=== PATIENT | female | born 1965 | race Hispanic/Latino ===

== ENCOUNTER 2020-08-13 07:06 | Day surgery (SDC) | payer OTHER, SELFPAY ==
[~2020-08-13] VITALS: Ht 160 cm; Wt 56.7 kg
[2020-08-13] VITALS (9 sets, daily range): BP systolic 71–173; BP diastolic 29–81
[~2020-08-13 07:06] MED LIST: ACET-2743 PO; DOCU-280 PO; IBUP-1673 PO
[2020-08-13] MEDS ORDERED: SODIUM CHLORIDE 0.9% 1000ML 1,000 ML IV ONE (07:11)
[2020-08-13] MEDS ORDERED: [UNRECOGNIZED DRUG - CODE] PO (07:56)
[2020-08-13] MEDS ORDERED: PROPOFOL 10 MG/ML 20ML VIAL IV ONE ×2 (08:25→08:40)
[2020-08-13] MEDS ORDERED: EPHEDRINE SULFATE 50 MG/ML AMPULE ONE (08:56)
[2020-08-13] MEDS ORDERED: DIATR MEGLU/DIATRIZOATE SODIUM 30 ML BOTTLE ONE (09:29)
== END 2020-08-13 10:15 | disposition home or self-care (01) ==
LOC: DAH 07:06 → ENDO 07:06
PROVIDERS: ATTEND Surgery
DX: K59.00 Constipation, unspecified (principal); Z20.822 Contact with and (suspected) exposure to COVID-19; C19 Malignant neoplasm of rectosigmoid junction; F17.210 Nicotine dependence, cigarettes, uncomplicated; Z79.899 Other long term (current) drug therapy; Z82.49 Family history of ischemic heart disease and other diseases of the circulatory system; Z98.890 Other specified postprocedural states
CPT/HCPCS: 45380; 74270; 87635; A4215; A4221; A4222; A4223; A4606; A4620; A4663; C9803; J2704 ×2; J3490; J7030; Q9963

== ENCOUNTER 2020-10-15 09:52 | Day surgery (SDC) | payer OTHER ==
[2020-10-09 17:09] LABS: BASOPHILS % (AUTO) 0.3 % (0.0-5.0); EOSINOPHILS % (AUTO) 1.3 % (0.0-8.0); LYMPHOCYTES % (AUTO) 27.1 % (21.0-51.0); MEAN CORPUSCULAR HEMOGLOBIN 29.9 pg (27.0-33.0); MEAN CORPUSCULAR HGB CONC 32.4 g/dL (32.0-36.0); MEAN CORPUSCULAR VOLUME 92.4 fL (79-99); MONOCYTES % (AUTO) 8.4 % (3.0-13.0); NEUTROPHILS % (AUTO) 62.6 % (40.0-77.0); PLATELET COUNT (AUTO) 357 K/uL (130-400); RED BLOOD CELL COUNT(AUTO) 3.68 MIL/uL (4.00-5.50); WHITE BLOOD COUNT (AUTO) 8.9 K/uL (4.8-10.8)
[2020-10-09 17:22] LABS: INR 0.93 (0.85-1.15); PROTHROMBIN TIME 10.2 SEC (9.6-11.6)
[2020-10-12 15:07] VITALS: BP 118/67
[~2020-10-15] VITALS: Ht 160 cm; Wt 56.8 kg
[2020-10-15] VITALS (15 sets, daily range): BP systolic 118–141; BP diastolic 72–81
[~2020-10-15 09:52] MED LIST changes: +0.9% NACL 500ML IV.SOLN 500 ML IV SCH; -ACET-2743 PO; -DOCU-280 PO; -IBUP-1673 PO
[2020-10-15] MEDS: CEFAZOLIN SODIUM 1 GM VIAL IVP SCH ×2 (10:00→14:30)
[2020-10-15] MEDS ORDERED: LACTATED RINGERS 1000ML 1,000 ML IV ONE ×2 (10:18→13:19)
[2020-10-15] MEDS ORDERED: DEXAMETHASONE SOD PHOSPHATE 10MG/ML 1ML VIAL ONE (11:58)
[2020-10-15] MEDS ORDERED: ONDANSETRON 4MG INJ ONE ×2 (11:58→14:02)
[2020-10-15] MEDS ORDERED: GLYCOPYRROLATE 1 MG/5 ML SYRINGE ONE (11:58)
[2020-10-15] MEDS ORDERED: PROPOFOL 10 MG/ML 20ML VIAL IV ONE ×2 (11:58→14:03)
[2020-10-15] MEDS ORDERED: LIDOCAINE PF 100MG/5ML (2%) SYRINGE 5ML ONE ×2 (11:58→14:02)
[2020-10-15] MEDS ORDERED: NEOSTIGMINE 5MG/5ML SYR IV ONE (11:58)
[2020-10-15] MEDS ORDERED: MIDAZOLAM HCL 1 MG/ML 2ML VIAL ONE ×2 (11:58→14:04)
[2020-10-15] MEDS ORDERED: SUCCINYLCHOLINE 200MG/10ML SYR ONE (11:58)
[2020-10-15] MEDS ORDERED: ROCURONIUM 10MG/1ML SYR 10 MG/ML ML ONE (11:58)
[2020-10-15] MEDS ORDERED: FENTANYL CITRATE PF 50 MCG/1 ML 2ML VIAL ONE ×2 (11:59→14:04)
[2020-10-15] MEDS ORDERED: BUPIVACAINE/PF 0.5% 30ML VIAL ONE (14:00)
[2020-10-15] MEDS ORDERED: EPHEDRINE SULFATE 50 MG/ML AMPULE ONE (14:33)
== END 2020-10-15 16:50 | disposition home or self-care (01) ==
LOC: DAH 09:52
PROVIDERS: ATTEND Surgery
DX: C18.9 Malignant neoplasm of colon, unspecified (principal); Z20.822 Contact with and (suspected) exposure to COVID-19; F17.210 Nicotine dependence, cigarettes, uncomplicated; K63.89 Other specified diseases of intestine; Z82.49 Family history of ischemic heart disease and other diseases of the circulatory system; Z79.899 Other long term (current) drug therapy; Z79.01 Long term (current) use of anticoagulants
CPT/HCPCS: 36415; 36561; 71045; 76000; 85025; 85610; 87635; 93005; A4215; A4221; A4222; A4223; A4600; A4657; A4663; C1788; C9803; G0168; J0330; J0690; J1100; J1644; J2001 ×2; J2250; J2405 ×2; J2704; J2710; J3010; J3490 ×2; J7120 ×2

== ENCOUNTER → 2021-02-19 | Outpatient (CLI) | payer OTHER | END | disposition home or self-care (01) | LOC: RAH 13:40 | PROVIDERS: ATTEND Internal Medicine | DX: Z12.31 Encounter for screening mammogram for malignant neoplasm of breast (principal) | CPT/HCPCS: 77067 ==

== ENCOUNTER 2021-05-24 06:57 | Day surgery (SDC) | payer OTHER ==
[2021-05-22 09:43] VITALS: BP 129/73
[2021-05-22 12:29] LABS: BASOPHILS % (AUTO) 0.5 % (0.0-5.0); EOSINOPHILS % (AUTO) 1.4 % (0.0-8.0); HEMATOCRIT 44.7 % (36-48); LYMPHOCYTES % (AUTO) 32.4 % (21.0-51.0); MEAN CORPUSCULAR HEMOGLOBIN 31.8 pg (27.0-33.0); MEAN CORPUSCULAR VOLUME 99.6 fL (79-99); MONOCYTES % (AUTO) 8.5 % (3.0-13.0); NEUTROPHILS % (AUTO) 56.4 % (40.0-77.0); PLATELET COUNT (AUTO) 313 K/uL (130-400); RED BLOOD CELL COUNT(AUTO) 4.49 MIL/uL (4.00-5.50); RED CELL DISTRIBUTION WIDTH 13.2 % (11.0-15.5)
[2021-05-22 12:37] LABS: CREATININE 0.6 mg/dL (0.5-1.5); POTASSIUM 5.9 mmol/L (3.5-5.1)
[~2021-05-24] VITALS: Ht 160 cm; Wt 64.1 kg
[2021-05-24] VITALS (13 sets, daily range): BP systolic 91–138; BP diastolic 41–75
[2021-05-24] MEDS ORDERED: LACTATED RINGERS 1000ML 1,000 ML IV ONE (07:09)
[2021-05-24] MEDS: CEFAZOLIN SODIUM 1 GM VIAL IVP SCH ×2 (08:00→08:31)
[2021-05-24] MEDS ORDERED: PROPOFOL 10 MG/ML 20ML VIAL IV ONE (08:19)
[2021-05-24] MEDS ORDERED: LIDOCAINE PF 100MG/5ML (2%) SYRINGE 5ML ONE (08:19)
[2021-05-24] MEDS ORDERED: MIDAZOLAM HCL 1 MG/ML 2ML VIAL ONE (08:19)
[2021-05-24] MEDS ORDERED: FENTANYL CITRATE PF 50 MCG/1 ML 2ML VIAL ONE (08:20)
[2021-05-24] MEDS ORDERED: RIVA10TA PO (08:20)
[2021-05-24] MEDS ORDERED: BUPIVACAINE/PF 0.25% 30ML VIAL IJ ONE (08:41)
[2021-05-24] MEDS ORDERED: ONDANSETRON 4MG INJ ONE (08:52)
== END 2021-05-24 10:10 | disposition home or self-care (01) ==
LOC: DAH 06:57
PROVIDERS: ATTEND Surgery
DX: Z45.2 Encounter for adjustment and management of vascular access device (principal); C18.7 Malignant neoplasm of sigmoid colon; Z20.822 Contact with and (suspected) exposure to COVID-19; F17.210 Nicotine dependence, cigarettes, uncomplicated; Z82.49 Family history of ischemic heart disease and other diseases of the circulatory system; Z79.899 Other long term (current) drug therapy
CPT/HCPCS: 36415 ×2; 36590; 80048; 84132; 85025; 87635; A4215; A4221; A4222; A4223; A4663; A6260; C9803; J0690; J2001; J2250; J2405; J2704; J3010; J3490; J7120

== ENCOUNTER 2021-10-28 06:55 | Day surgery (SDC) | payer OTHER ==
[~2021-10-28 06:55] MED LIST changes: -0.9% NACL 500ML IV.SOLN 500 ML IV SCH; +VITAMIN B12 PO; +VITAMIN D3 PO
[2021-10-28 07:51] VITALS: BP 132/75
[2021-10-28] MEDS ORDERED: 0.9%NACL 1000ML 1,000 ML IV ONE (07:53)
[2021-10-28] MEDS ORDERED: PROPOFOL 10 MG/ML 20ML VIAL IV ONE ×2 (09:13)
[2021-10-28] MEDS ORDERED: LIDOCAINE HCL 1% 20 ML VIAL ONE (09:13)
[2021-10-28 09:35] VITALS: BP 108/59
[2021-10-28 09:40] VITALS: BP 112/62
[2021-10-28 09:43] VITALS: BP 104/57
[2021-10-28 09:50] VITALS: BP 108/68
[2021-10-28 09:55] VITALS: BP 114/72
== END 2021-10-28 10:45 | disposition home or self-care (01) ==
LOC: DAH 06:55 → ENDO 06:55
PROVIDERS: ATTEND Surgery
DX: C18.9 Malignant neoplasm of colon, unspecified (principal); F17.210 Nicotine dependence, cigarettes, uncomplicated; Z98.890 Other specified postprocedural states; Z82.49 Family history of ischemic heart disease and other diseases of the circulatory system; Z79.899 Other long term (current) drug therapy
CPT/HCPCS: 87426; 45378; A4215; A4223; A4222; A4221; A4663; A4606; J7030; J2704 ×2

== ENCOUNTER → 2022-03-04 | Outpatient (CLI) | payer OTHER | END | disposition home or self-care (01) | LOC: RAH 15:20 | PROVIDERS: ATTEND Internal Medicine | DX: Z12.31 Encounter for screening mammogram for malignant neoplasm of breast (principal) | CPT/HCPCS: 77067 ==